=== PATIENT | female | born 2000 | race Caucasian/White ===

== ENCOUNTER 2023-09-06 08:04 | Inpatient (IN) | payer OTHER ==
[~2023-09-06] VITALS: Ht 157.5 cm; Wt 97.5 kg
[2023-09-06 08:55] VITALS: BP 118/64; PULSE 88; RESP 18; TEMP 98.5
[2023-09-06] MEDS ORDERED: NALBUPHINE 10 MG/ML AMP IVP PRN (09:10)
[2023-09-06 10:20] LABS: BASOPHILS % (AUTO) 0.2 % (0.0-2.0); EOSINOPHILS % (AUTO) 0.1 % (0.0-4.0); HEMATOCRIT 30.8 % (36-48); HEMOGLOBIN 9.9 g/dL (12.0-16.0); LYMPHOCYTES # (AUTO) 1.2 K/uL (2.5-16.5); LYMPHOCYTES % (AUTO) 15.6 % (20.5-51.1); MEAN CORPUSCULAR HEMOGLOBIN 24 pg (27-31); MEAN CORPUSCULAR HGB CONC 32 g/dL (33-37); MEAN CORPUSCULAR VOLUME 75.8 fL (80-94); MONOCYTES # (AUTO) 0.7 K/uL (0.8-1.0); MONOCYTES % (AUTO) 8.5 % (1.7-9.3); NEUTROPHILS # (AUTO) 5.9 K/uL (1.8-7.7); NEUTROPHILS % (AUTO) 75.6 % (42.2-75.2); PLATELET COUNT (AUTO) 185 K/uL (140-450); RED BLOOD CELL COUNT(AUTO) 4.06 MIL/uL (4.20-5.40); RED CELL DISTRIBUTION WIDTH 17.1 % (11.6-13.7); WHITE BLOOD COUNT (AUTO) 7.8 K/uL (4.8-10.8)
[2023-09-06 10:22] LABS: BILIRUBIN,URINE NEGATIVE (NEGATIVE); BLOOD, URINE NEGATIVE (NEGATIVE); COLOR,URINE YELLOW (YELLOW); LEUKOCYTE ESTERASE ,URINE 1+ (NEGATIVE); NITRITE, URINE NEGATIVE (NEGATIVE); PROTEIN,URINE NEGATIVE (NEGATIVE); UGLUCOSE NEGATIVE (NEGATIVE); UROBILINOGEN,URINE 0.2 EU/dL (0.2 - 1)
[2023-09-06 10:24] LABS: APPEARANCE,URINE SLIGHTLY HAZY (CLEAR)
[2023-09-06 10:35] LABS: BACTERIA,URINE FEW /HPF (None Seen); RBC,URINE 0-5 /HPF (0-5); SQUAMOUS EPITHELIAL CELL,UR 4-10 (MOD) /LPF (0-3 (FEW))
[2023-09-06 10:44] LABS: PARTIAL THROMBOPLASTIN TIME 24.5 secs (22-35.6)
[2023-09-06] MEDS: LACTATED RINGERS 1,000 ML IV SCH (11:22)
[2023-09-06] MEDS: OXYTOCIN/0.9 % SODIUM CHLORIDE 500 ML IV SCH (11:43)
[2023-09-06 12:58] LABS: INR 0.99 (0.8-1.2); PROTHROMBIN TIME 10.4 secs (10.8-13.4)
[2023-09-06] MEDS ORDERED: oxyCODONE/APAP 5/325 MG 1 TAB TAB PO PRN (17:45)
[2023-09-06] MEDS ORDERED: TEMAZEPAM 15 MG CAP PO PRN (17:45)
[2023-09-06] MEDS ORDERED: OXYTOCIN 10 UNITS/ML VIAL IM PRN (17:45)
[2023-09-06] MEDS ORDERED: METHYLERGONOVINE 0.2 MG TAB PO PRN (17:45)
[2023-09-06] MEDS ORDERED: BENZOCAINE/MENTHOL 20%-0.5% 60 GM CAN TP PRN (17:45)
[2023-09-06] MEDS ORDERED: METHYLERGONOVINE 0.2 MG/ML AMP IM PRN (17:45)
[2023-09-06] MEDS ORDERED: MEDS-TO-BEDS MC SCH (21:00)
[2023-09-06] MEDS: DOCUSATE SOD/SENNA 50/8.6 MG 1 TAB PO SCH (21:23)
[2023-09-07] MEDS: IBUPROFEN 800 MG TAB PO PRN (00:39)
[2023-09-07] MEDS: oxyCODONE/APAP 5/325 MG 1 TAB TAB PO PRN (03:11)
[2023-09-07 06:09] LABS: HEMATOCRIT 29.8 % (36-48); HEMOGLOBIN 9.7 g/dL (12.0-16.0)
== END 2023-09-08 13:30 | disposition home or self-care (01) | DRG 560 ==
LOC: OBSVTOIN 08:04 → MLD 08:04 → MFCC 08:18
PROVIDERS: ADMIT Obstetrics & Gynecology; ATTEND Obstetrics & Gynecology
PROC: 10E0XZZ Delivery of Products of Conception, External Approach (ICD-10-PCS; principal; 2023-09-06)
PROC: 10907ZC Drainage of Amniotic Fluid, Therapeutic from Products of Conception, Via Natural or Artificial Opening (ICD-10-PCS; 2023-09-06)
DX: O24.429 Gestational diabetes mellitus in childbirth, unspecified control (principal); Z37.0 Single live birth; Z20.822 Contact with and (suspected) exposure to COVID-19; Z3A.38 38 weeks gestation of pregnancy
CPT/HCPCS: 36415; 59409; 81001; 82948; 85018; 85025; 85610; 85730; 86592; 86886; 86900; 86901; 87086; J2590